=== PATIENT | female | born 1985 | race Caucasian/White ===

== ENCOUNTER 2018-07-08 08:47 | Outpatient (CLI) | payer OTHER ==
[2018-07-08 18:04] LABS: T4 (THYROXINE) 7.6 ug/dL (6.09-12.23)
[2018-07-08 18:08] LABS: THYROID STIMULATING HORMONE 2.59 uIU/mL (0.34-5.60)
[2018-07-08 18:13] LABS: FREE T4 (FREE THYROXINE) 0.93 ng/dL (0.58-1.64)
[2018-07-08 18:36] LABS: FOLLICLE STIMULATING HORMONE 6.17 mIU/mL
[2018-07-08 18:37] LABS: LUTEINIZING HORMONE 12.18 mIU/mL
== END 2018-07-08 08:48 | disposition home or self-care (01) ==
LOC: LAB.F 08:47
PROVIDERS: ATTEND Registered Nurse
DX: Z31.69 Encounter for other general counseling and advice on procreation (principal)
CPT/HCPCS: 36415; 81599; 82670; 83001; 83002; 84436; 84439; 84443